=== PATIENT | female | born 1980 | race Two or more races ===

== ENCOUNTER 2017-03-21 22:26 | Emergency (ER) | payer OTHER ==
[~2017-03-21] VITALS: Ht 167.6 cm; Wt 54.4 kg
[2017-03-21] MEDS ORDERED: ACETAMINOPHEN ES 500 MG TABLET PO ONE (23:30)
[2017-03-21 23:34] VITALS: BP 149/69
--- NOTE | 2017-03-21 23:34 | NUR ---
Patient discharged to home in stable conditon. Written and verbal after care instructions given. Patient verbalizes understanding of instructions. PATIENT LEFT WITH STABLE GAIT.
[2017-03-21] MEDS ORDERED: ACETAMINOPHEN ES 500 MG TABLET ONE (23:38)
== END 2017-03-21 23:35 | disposition home or self-care (01) ==
LOC: ER 22:29
DX: R51 Headache (principal); R21 Rash and other nonspecific skin eruption; R59.1 Generalized enlarged lymph nodes
CPT/HCPCS: 99282; A4663